=== PATIENT | male | born 1990 | race African-American/Black ===

== ENCOUNTER 2019-07-12 08:54 | Emergency (ER) | payer SELFPAY ==
--- NOTE | 2019-07-12 09:04 | ED_ITS ---
HPI - Asthma General Chief Complaint: Asthma Stated Complaint: ASTHMA Time Seen by Provider: 07/12/19 09:01 History of Present Illness HPI Narrative: 28 yo male with h/o asthma present with SOB since last night. Took primatine mist last night and improved enough to sleep. Worse this morning. Out of rescue inhaler. Associated with chest tightness, no pain. No fever, cough congestion. Related Data Allergies Allergy/AdvReac Type Severity Reaction Status Date / Time No Known Allergies Allergy Verified 07/12/19 09:13 Review of Systems Review of Systems: All systems reviewed & are unremarkable except as noted in HPI and below Constitutional: Constitutional: Denies chills and Denies fever(s) ENT: Denies sore throat Cardiovascular: Cardiovascular: Denies chest pain Respiratory: Respiratory: Denies cough, Reports dyspnea and Reports wheezing Gastrointestinal: Gastrointestinal: Denies nausea PMFSH Past Medical History Medical History Asthma Social History Social History Gender identity (if verbalized by the patient): Male Exam Const: General: healthy appearing, no acute distress and alert Nutritional Appearance: well nourished Orientation/consciousness: patient oriented x3 HENMT: Head: normal to inspection Resp: Effort & Inspection: tachypneic Auscultation: wheezes Cardio: Rate: regular rate Rhythm: regular rhythm Skin: General skin exam: normal color Neuro: General: patient oriented x3, moves all extremities and CN's II-XI intact bilaterally Speech: normal speech Extrem: General: normal to inspection Course Vital Signs Vital signs: Vital Signs Temperature 36.8 C 07/12/19 09:08 Pulse Rate 94 07/12/19 09:08 Respiratory Rate 16 07/12/19 09:08 Blood Pressure 129/87 07/12/19 09:08 Pulse Oximetry 100 07/12/19 09:08 Temperature 36.8 C 07/12/19 09:08 Pulse Rate 78 07/12/19 10:57 Respiratory Rate 15 07/12/19 10:57 Blood Pressure 157/64 H 07/12/19 10:57 Pulse Oximetry 100 07/12/19 10:57 MDM - Asthma MDM Narrative Medical decision making narrative: Feeling better after nebulizer treatments. Differential Diagnosis Differential diagnosis: Likely Acute exacerbation Discharge Plan Discharge Clinical Impression: Asthma with acute exacerbation Qualifiers: Asthma severity: unspecified severity Asthma persistence: unspecified Qualified Code(s): J45.901 - Unspecified asthma with (acute) exacerbation Patient Disposition: Home, Self-Care Condition: Stable Instructions: Asthma (ED) Prescriptions: New albuterol sulfate 90 mcg/actuation aerosol powdr breath activated 2 inhalation INHALATION Q4H PRN (Reason: shortness of breath or wheezing) Qty: 1 RF: 0 Follow-up/Referrals: PHYSICIAN,DEVULCANIZER TENDER [Primary Care Provider] - Discharge Date/Time: 07/12/19 10:58
[2019-07-12 09:08] VITALS: BP 129/87; PULSE 94; RESP 16; TEMP 36.8; O2SAT 100
[2019-07-12] MEDS: ALBUTEROL SULFATE NEB 2.5 MG/0.5 ML INH 5 MG INHALATION ×2 (09:29→10:04)
[2019-07-12 09:30] VITALS: PULSE 100; RESP 12
[2019-07-12 09:39] VITALS: PULSE 97; RESP 14
[2019-07-12 10:04] VITALS: PULSE 103; RESP 14
[2019-07-12 10:13] VITALS: PULSE 118; RESP 14
[2019-07-12 10:57] VITALS: BP 157/64; PULSE 78; RESP 15; O2SAT 100
== END 2019-07-12 10:58 | disposition home or self-care (01) ==
PROVIDERS: Emergency Provider Emergency Medicine
DX: J45.901 Unspecified asthma with (acute) exacerbation (principal)
CPT/HCPCS: 94640; 99284